=== PATIENT | male | born 1980 | race Caucasian/White ===

== ENCOUNTER 2020-04-08 11:52 | Emergency (ER) | payer OTHER ==
[2020-04-08 12:50] LABS: HEMOGLOBIN 16.5 gm/dl (14.0-17.5); RED BLOOD COUNT 5.54 M/UL (4.20-5.50); WHITE BLOOD COUNT 9.5 K/UL (4.5-11.0)
[2020-04-08 13:12] LABS: BUN/CREATININE RATIO 15 (0-10)
[2020-04-08] MEDS ORDERED: ZOFRAN4 MG PO (13:50)
[2020-04-08] MEDS ORDERED: BENTYL 20MG TAB20 MG PO (13:50)
[2020-04-16] MEDS ORDERED: ELAVIL 10 MG TA10 MG PO (08:13)
[2020-04-16] MEDS ORDERED: ADMELOG100 UNIT/1 SC (08:13)
[2020-04-16] MEDS ORDERED: BASAGLAR K100 UNIT/1 SQ (08:14)
[2020-04-16] MEDS ORDERED: GLUCOTROL5 MG PO (08:14)
[2020-04-16] MEDS ORDERED: FORTAMET1000 MG PO (08:15)
[2020-04-16] MEDS ORDERED: CRESTOR5 MG PO (08:15)
[2020-04-16] MEDS ORDERED: HYDROCODON-ACE1 EAC2 PO (09:28)
== END 2020-04-08 14:02 | disposition home or self-care (01) ==
LOC: ER1 11:52
PROVIDERS: Emergency Medicine
DX: K80.20 Calculus of gallbladder without cholecystitis without obstruction (principal); E11.9 Type 2 diabetes mellitus without complications; Z88.5 Allergy status to narcotic agent; Z90.49 Acquired absence of other specified parts of digestive tract
CPT/HCPCS: 80053; 81001; 83690; 85025; 96372; 99284

== ENCOUNTER → 2020-04-16 | Day surgery (SDC) | payer OTHER ==
[~2020-04-16] MED LIST: ADMELOG100 UNIT/1 SC; BASAGLAR K100 UNIT/1 SQ; BENTYL 20MG TAB20 MG PO; CRESTOR5 MG PO; ELAVIL 10 MG TA10 MG PO; FORTAMET1000 MG PO; GLUCOTROL5 MG PO; HYDROCODON-ACE1 EAC2 PO; ZOFRAN4 MG PO
== END | disposition home or self-care (01) ==
LOC: OR 06:31
PROVIDERS: Surgery
PROC: 0FT44ZZ Resection of Gallbladder, Percutaneous Endoscopic Approach (ICD-10-PCS; principal; 2020-04-16 08:45)
DX: K80.66 Calculus of gallbladder and bile duct with acute and chronic cholecystitis without obstruction (principal); I10 Essential (primary) hypertension; E66.01 Morbid (severe) obesity due to excess calories; E11.9 Type 2 diabetes mellitus without complications; Z79.84 Long term (current) use of oral hypoglycemic drugs; Z88.8 Allergy status to other drugs, medicaments and biological substances; Z79.899 Other long term (current) drug therapy
CPT/HCPCS: 82962; J0360; J0690; J1100; J1170; J1885; J2001; J2250; J2405; J2704; J2710; J2765; J3010; J7030; J7120

== ENCOUNTER 2021-03-27 21:11 | Emergency (ER) | payer OTHER ==
[2021-03-28] MEDS ORDERED: HYDROCODON-ACE1 EAC2 PO (00:28)
== END 2021-03-28 01:05 | disposition home or self-care (01) ==
LOC: ER1 21:11
DX: S52.125A Nondisplaced fracture of head of left radius, initial encounter for closed fracture (principal); E11.9 Type 2 diabetes mellitus without complications; W01.0XXA Fall on same level from slipping, tripping and stumbling without subsequent striking against object, initial encounter
CPT/HCPCS: 73080; 73562; 99283; J2270; J2550

== ENCOUNTER → 2021-04-07 | Outpatient (CLI) | payer OTHER | LOC: KOH-I 08:22 | DX: S52.122A Displaced fracture of head of left radius, initial encounter for closed fracture (principal) | CPT/HCPCS: 73200 ==